=== PATIENT | female | born 1950 | race Caucasian/White ===

== ENCOUNTER 2024-09-27 09:48 | Outpatient (AMB) | payer MEDICARE, SELFPAY ==
--- NOTE | 2024-09-27 09:52 | MHC.OFFVIS ---
Vital Signs 09/27/24 10:22 Height 5 ft 3 in Weight 97 lb 4 oz BMI 17.2 BP 133/57 L Blood Pressure Location Lt brachial Position Sitting Pulse 97 Pulse Source Pulse Oximeter Intake Visit Reasons: Unilateral prim hip osteoarthritis/SI pain Intake Note: Pain today 0/10 Telecommunicator Supervisor Required: No Accompanied by: Self / Same As Patient Allergies cyproheptadine [From Periactin] Allergy (Unknown, Verified 09/27/24 10:23) Unknown naltrexone Allergy (Unknown, Verified 09/27/24 10:23) lightheadedness promethazine [From Phenergan] Allergy (Unknown, Verified 09/27/24 10:23) Unknown Sulfa (Sulfonamide Antibiotics) Allergy (Unknown, Verified 09/27/24 10:23) Unknown HPI Comments Details: Eve is very pleasant 74 years old female who presents in my office with complains on pain in the projection of the left sacroiliac joint. Apparently she fell on the ground in 2020 she broke her wrist and also injured her sacral bone. She stated that she had sacral fracture however recent MRI did not demonstrate old sacral fractures. The full MRI report is described as below. She reports her pain prevents her from sleeping normally. She can do activities of daily living, she can take care of herself, she can not function normally. 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 Activities aggravate her pain. The pain is more severe in the afternoon or night. The pain is less severe in the morning. In terms of tissue damage she reports her pain is lancinating, sharp, crushing, ringing, twisting, stuck sensation, pulling, wrenching, aching, terrifying, tight, squeezing sensation. She is currently taking fluoxetine pravastatin and famotidine. She was under care of [facility] multiple times. She had multiple images results of MRI in 2023 dictated as below. She had multiple sessions of physical therapy at [facility]. She had chiropractic manipulations and brat [facility] with minimal help. Physical therapy also did not help her. Massage therapy provided moderate pain relief for short period of time. She had occupational therapy in rehab in 2020 and she tried homeopathic topical gels with minimal pain relief. She also tried 10s unit. She had multiple injections from [facility]. She reported that the 1st and 2nd sacroiliac joint injection helps her pain. The 3rd and the 4th injections were less effective. The last injection she had with [facility] was not at all effective and she was told that they can not help her with anything else. Her past medical history significant for headaches dizziness and fatigue history of heart palpitation and dysrhythmia history of arthritis. She has surgical history of kneecap surgery removal of metal knee cup surgery of broken radial bone and broken ulna on the right. She also went for rehabilitation for fractured sacrum for 1 week in 2020. Social history she is retired individual. She stopped smoking cigarettes in 1990. She denies drinking alcohol. She drinks 3 cups of coffee a day. She consumes cannabis 6 times a year. PENDING SALE TO [facility] Medical History (Updated 09/27/24 @ 11:03 by Renard Mustafa MD) Closed wedge compression fracture of T9 vertebra Closed wedge compression fracture of T5 vertebra Herpes zoster Effusion of knee joint Recurrent UTI (urinary tract infection) PTSD (post-traumatic stress disorder) Popliteal pain Patellar fracture Osteoporosis Orthopedic trauma Microcytic anemia Medial epicondylitis Iron deficiency Hyperlipidemia Fibromyalgia Fibrocystic breast Episodic recurrent vertigo Environmental allergies Digital mucous cyst of right hand Closed sacral fracture Cough Chronic tension headache Bartholin cyst Arthritis Aortic atherosclerosis Agatston coronary artery calcium score between 100 and 199 Anxiety Acute pain of right knee Acquired valgus deformity knee Mild acid reflux Social History (Updated 09/27/24 @ 10:13 by Domenica Kovacs) Alcohol intake: never Patient Tobacco Use Status: Former Tobacco user Review of Systems Const All systems reviewed & are unremarkable except as noted in HPI and below Reports no additional complaints ENT Reports Normal hearing present Card Reports as per HPI Resp Reports no additional complaints GI Reports no additional complaints Reports no additional complaints Musc Reports as per HPI Neuro Reports no additional complaints, Reports Normal hearing present, Denies Abnormal speech present, Denies confusion and Denies Sensory deficit (Neuro) Psych Reports no additional complaints and Denies confusion Physical Exam Vital Signs: Last Vital Signs Pulse 97 09/27/24 10:22 BP 133/57 L 09/27/24 10:22 BMI result Body Mass Index 17.2 Const General: no acute distress; No confusion Nutritional Appearance: malnourished, thin and underweight Orientation/consciousness: patient oriented x3 and No confusion Limitations: no limitations Eyes General: appearance normal, both eyes and all related structures Pupils: Equal, round and reactive pupils present EOM: EOMs intact bilaterally Neck Neck: Yes full ROM Chest Chest palpation & inspection: normal inspection of the chest Resp Effort & Inspection: normal respiratory effort, able to speak in complete sentences, normal respiratory pattern, no audible wheezes and no cough Cardio Jugular venous distension: no JVD GI Inspection: Yes normal to inspection Back/Spine/Pelvis Other: Sumit test is positive on the left. Thigh thrust test is positive on the left. Pelvic compression test is positive on the left. Fourteen finger test is positive on the left. Lateral and medial left hip rotation result in pain aggravation in the projection of the left sacroiliac joint but not in the projection of the left groin. Neuro General: patient oriented x3, gait normal and No confusion Cranial nerves: Yes CN's II-XII intact bilaterally, Yes Equal, round and reactive pupils present, Yes Normal hearing present and Yes Ability to bilaterally elevate shoulders present Speech: No Abnormal speech present Gait exam (Neuro): Normal gait present Motor exam (neuro): 5/5 motor strength present throughout Sensory Exam: No Sensory deficit (Neuro) Extrem General: No pedal edema Psych Speech and movement: Normal speech and movement present Affect: normal affect Attitude: cooperative Thought process: Normal thought process present Thought content: Normal thought content present Insight: Good insight present (Psych) Judgement: Good judgement present (Psych) Results Reviewed Results Reviewed: Pelvis MRI without contrast 08/05/2024. MRI pelvis findings: Bone and bone marrow no hip fractures no AVM grade 1 anterolisthesis L4 on L5, chronic appearing deformity at L5-S1 without edema Asymmetric small left sacroiliac joint effusion and degenerative changes in the left sacroiliac joint. New small erosion are noted on the either side. Soft tissues no evidence of mass no hip effusion pelvic structures are unremarkable. Impression asymmetric left sacroiliac joint degenerative changes with small left sacroiliac joint effusion. A few small erosions are noted on the either side of the left sacroiliac joint. While this could be asymmetric osteoarthritis inflammatory arthritis should be excluded clinically. Assessment & Plan Assessment & Plan (1) Sacroiliitis: Code(s): M46.1 - Sacroiliitis, not elsewhere classified Category: Medical (2) Sacroiliac joint dysfunction of left side: Code(s): M53.3 - Sacrococcygeal disorders, not elsewhere classified Category: Medical (3) Chronic pain syndrome: Code(s): G89.4 - Chronic pain syndrome Category: Medical Plan Radiologist discovered sacroiliitis on the left with significant advancement of the arthritis. The patient was suspected to have systemic diseases such as SLE versus RA. However neither rheumatoid factor nor antinuclear antibodies were positive for this patient. Multiple injections in the sacroiliac joint on the left were very successful initially but with time lost its effectiveness. The patient already suffering from osteopenia. Unlikely sacroiliac joint fusion is possible for this patient however osteoporosis is not diagnose yet. First I would like to try sacroiliac joint innervation stimulation by cure on X. She needs to past psychological evaluation before that. If she gives appropriate numbers on stimulation of the cure on X device we will implanted permanently. I informed the patient that for the 10 weeks she will not be able to ride her horses or perform heavy lifting torso twisting or turning. Patient expressed understanding. However if the trial of PNS cure on X will not be working Nevro SI joint fusion could be offered to the patient. Patient Instructions: I here by testify that I spent 45 minutes in conversation with this patient as well as planning her care and organizing this note. Coding Level of Care Code New Pt Level 4 (36427) Diagnoses Sacroiliitis M46.1 Sacroiliac joint dysfunction of left side M53.3 Chronic pain syndrome G89.4
[2024-09-27 10:22] VITALS: BP 133/57; PULSE 97; BMI 17.2
== END 2024-09-27 10:53 | disposition home or self-care (01) ==
PROVIDERS: PCP Physician Assistant Medical; Visit Provider Anesthesiology
DX: M46.1 Sacroiliitis, not elsewhere classified (principal); M53.3 Sacrococcygeal disorders, not elsewhere classified; G89.4 Chronic pain syndrome
CPT/HCPCS: 99204

== ENCOUNTER → 2024-09-27 09:48 | Outpatient (BNVA) | payer MEDICARE, SELFPAY | PROVIDERS: PCP Physician Assistant Medical; Visit Provider Anesthesiology | DX: M46.1 Sacroiliitis, not elsewhere classified (principal); M53.3 Sacrococcygeal disorders, not elsewhere classified; G89.4 Chronic pain syndrome | CPT/HCPCS: 99202 ==